=== PATIENT | male | born 1965 | race Caucasian/White ===

== ENCOUNTER → 2016-05-30 | Outpatient (CLI) | payer BC ==
--- NOTE | 2016-05-30 14:33 | DI ---
ABDOMINAL ULTRASOUND, 05/30/2016 9:47 AM: Clinical History: Right upper quadrant pain. Previous Exam: None at this facility. Scans are performed through the right and left upper quadrants in multiple projections. The gallbladder is well distended and has a normal wall thickness. There are no gall stones. Common b ile duct measures 4 mm. The liver is normal in size and has a roughly 25 mm simple cyst in the anteri or portion of the left lobe. The liver is otherwise normal. Both kidneys and the spleen are also norm al. The pancreas is suboptimally visualized secondary to bowel gas. The IVC and aorta are normal. READIN. Normal gallbladder ultrasound. 2. The liver has a 25 mm simple cyst in the left lobe anteriorly but is otherwise normal. 3. Both kidneys, the spleen, the IVC, and aorta are normal. The pancreas is obscured by gas.
== END ==
LOC: LAB 09:39
PROVIDERS: ATTEND Nurse Practitioner Family
DX: R10.11 Right upper quadrant pain (principal); K76.89 Other specified diseases of liver
CPT/HCPCS: 76700